=== PATIENT | female | born 1940 | race Caucasian/White ===

== ENCOUNTER 2016-09-21 14:04 | Emergency (ER) | payer MEDICARE, OTHER ==
[~2016-09-21 14:04] MED LIST: ALBUTEROL2.5 MG/3 M INH; ASPIRIN EC81 MG PO; ATORVASTATIN CA80 MG PO; ATROVENT INH S2.5 ML INH; ATROVENT INH S2.5 ML PO; COLACE 100MG C100 MG PO; DILTIAZEM ER180 M1 PO; DITROPAN 5 MG TA5 MG PO; ELMIRON 100 MG100 MG PO; ELMIRON100 MG PO; FEOSOL325 MG PO; FISH OIL 1,0001 EACH PO; HYDRALAZINE HCL50 MG PO; HYDROCHLOROTHIA25 MG PO; JANUVIA50 MG PO; LOPRESSOR50 MG PO; MELOXICAM7.5 MG PO; NEURONTIN100 MG PO; NICOTINE PATCH1 EAC1 TOP; OXYCODONE HCL15 MG PO; PREDNISONE 20 M20 MG PO; PROMETHAZINE HC25 M1 PO; PROVENTIL HFA 61 INH INH; REMERON15 M1 PO; SIMVASTATIN10 MG PO; THEO-DUR 300 M300 MG PO; TRAMADOL HCL50 MG PO; TRAZODONE HCL50 MG PO; VENTOLIN/PROVE0.5 ML INH; ZOCOR 40 MG TAB40 MG PO
[2016-09-21 16:25] LABS: HEMOGLOBIN 12.3 gm/dl (12.3-15.3); RED BLOOD COUNT 4.37 M/UL (4.00-5.10); WHITE BLOOD COUNT 10.4 K/UL (4.5-11.0)
== END 2016-09-21 22:20 | disposition home or self-care (01) ==
LOC: ER1 14:04
PROVIDERS: Physician Assistant
DX: I12.9 Hypertensive chronic kidney disease with stage 1 through stage 4 chronic kidney disease, or unspecified chronic kidney disease (principal); N18.9 Chronic kidney disease, unspecified; J18.9 Pneumonia, unspecified organism; M54.9 Dorsalgia, unspecified; G89.29 Other chronic pain; Z79.891 Long term (current) use of opiate analgesic; Z88.8 Allergy status to other drugs, medicaments and biological substances
CPT/HCPCS: 36415; 70450; 71020; 80048; 80053; 80307; 81001; 82550; 82553; 83690; 83874; 84484; 85025; 93005; 96360; 99284